=== PATIENT | male | born 1980 | race Caucasian/White ===

== ENCOUNTER 2017-08-12 15:43 | Observation (INO) | payer OTHER ==
[~2017-08-12] VITALS: Ht 172.7 cm; Wt 87.0 kg
[2017-08-12] MEDS ORDERED: XYLOCAINE 1%/SOD BICARB 20 ML VIAL INFIL ONE (16:00)
[2017-08-12] MEDS ORDERED: MoRPHine SULFATE 4 MG/ML 1 ML CARP\\VIAL IV STA ×2 (16:32→17:53)
[2017-08-12] MEDS ORDERED: ONDANSETRON INJ 2 MG/ML 2 ML VIAL IV STA (16:32)
[2017-08-12] MEDS ORDERED: AMPICILLIN/SULBACTAM SOD INJ 3,000 MG in SODIUM CHLORIDE 0.9% 100ML 100 ML IV STA (16:43)
[2017-08-12] MEDS ORDERED: OPTIRAY 320 IV PRN (16:45)
[2017-08-12 17:25] LABS: BASO % 0.2 %; BASO ABS # 0.04 K/uL (0-0.2); EOS % 0.3 %; EOS ABS # 0.06 K/uL (0-0.5); HEMATOCRIT 39.8 % (42-52); HEMOGLOBIN 13.6 g/dL (14.0-18.0); IG# 0.09 K/uL (0.00-0.02); LYMPH % 16.4 %; MEAN CELL VOLUME 92.1 fL (80-100); MEAN CORPUSCULAR HEMOGLOBIN 31.5 pg (25-34); MEAN CORPUSCULAR HGB CONC 34.2 g/dl (32-36); MEAN PLATELET VOLUME 9.4 fL (7.4-10.4); MONO % 6.5 %; MONO ABS # 1.18 K/uL (0.11-0.59); NEUT % 76.1 %; PLATELET COUNT 237 K/uL (130-400); RED CELL DISTRIBUTION WIDTH SD 47.6 fL (36.4-46.3); WHITE BLOOD COUNT 18.27 K/uL (4.8-10.8)
[2017-08-12 17:44] LABS: CALCIUM 8.8 mg/dl (8.5-10.1); CREATININE 0.94 mg/dl (0.60-1.40); POTASSIUM 3.9 mmol/L (3.5-5.1)
--- NOTE | 2017-08-12 18:28 | DIAGNOSTIC IMAGING REPORT ---
CT PELVIS W/IV CONT ONLY (CT) CT DOSE: 249.57 mGy.cm CLINICAL HISTORY: Tailbone cyst TECHNIQUE: The patient was scanned in a dynamic helical fashion during intravenous administration of 116 cc of Optiray 320. A dose lowering technique was utilized adhering to the principles of ALARA. COMPARISON STUDY: None. FINDINGS: There are mildly prominent inguinal lymph nodes, likely reactive. There is no iliac lymphadenopathy. There is no pathologic bowel dilatation. There is colonic diverticulosis. There are no acute peridiverticular inflammatory changes. Within the subcutaneous tissues of the sacral region, there is a elongated cystic lesion extending from the S3 level to the left gluteal fold measuring 14 cm in length, 2.7 cm in maximal transverse diameter, and 2.6 cm in maximal AP diameter. There are no underlying bony abnormalities of the sacrum. One cannot exclude a subtle fistulous tract to the anus. Clinical and physical examination will be necessary to differentiate a perianal abscess from a pilonidal cyst. It should be noted that an MRI study is more sensitive for the detection of a fistulous tract with the anus. IMPRESSION: 14 x 2.7 x 2.6 cm cystic subcutaneous mass, extending from the mid sacral level to the left gluteal fold. Clinical and physical examination will be necessary to differentiate a perianal abscess from a pilonidal cyst Electronically signed by: Corey Soto M.D. 08/12/2017 6:27 PM Dictated Date/Time: 08/12/2017 6:16 PM
[2017-08-12] MEDS ORDERED: HYDROmorphone INJ 0.5 MG/0.5 ML SYR IV STA (19:42)
--- NOTE | 2017-08-12 20:53 | EMERGENCY ROOM VISIT NOTE ---
History First contact with patient: 15:54 Chief Complaint: WOUND INFECTION Stated Complaint: CYST ON TAILBONE-PHYSICIAN REFERRED Nursing Triage Summary: Patient ambulatory to triage with a steady and upright gait, states "I have a history of pilonidal cysts. I saw my PCP for one today. They sent me here to have it drained." History of Present Illness The patient is a 37 year old male who presents to the Emergency Room with complaints of a recurrent pilonidal abscess. The patient reports that he has had this multiple times in the past. He was seen today by his PCP who referred him here. The patient reports that he has had chronic scar tissue in that area. It started to worsen over the past week. He denies fevers or chills, and rates his discomfort a 4 out of 10. Review of Systems 10 system review was performed and was negative except for pertinent positives and negatives as indicated in history of present illness Past Medical/Surgical History Medical Problems: (1) Pilonidal disease Surgical Problems: (1) No history of previous surgery Family History Unremarkable Social History Smoking Status: Current Every Day Smoker Alcohol Use: occasionally Marital Status: Occupation Status: employed Current/Historical Medications No Active Prescriptions or Reported Meds Physical Exam Vital Signs Date Time Temp Pulse Resp B/P (MAP) Pulse Ox O2 Delivery O2 Flow Rate FiO2 08/12/17 18:44 92 18 141/91 98 Room Air 08/12/17 15:49 36.9 114 18 122/79 99 Room Air Physical Exam CONSTITUTIONAL: Healthy and well nourished. Alert and oriented X 3 with positive affect. HEENT: Normocephalic, atraumatic. Pupils equal, round and reactive. NECK: Full active range of motion without discomfort. RESPIRATORY: Clear to auscultation bilaterally with no wheezing, crackles, rhonchi or stridor. CARDIOVASCULAR: Regular rate and rhythm with no murmurs, rubs or gallops. GASTROINTESTINAL: Bowel sounds present in all quadrants. Abdomen is soft and nontender to palpation. MUSCULOSKELETAL: Full range of motion of all joints without discomfort. INTEGUMENTARY: Examination of the pilonidal region shows significant scar tissue and induration with mild overriding erythema. Induration extends into the left medial gluteal wall. It does not extend to the rectum. No focal fluctuance noted in either the pilonidal region or buttock. There is no perianal tenderness to palpation. NEUROLOGIC: No focal neurologic deficits noted. Medical Decision & Procedures ER Provider Diagnostic Interpretation: CT of the pelvis with IV contrast shows the following: CT PELVIS W/IV CONT ONLY (CT) CT DOSE: 249.57 mGy.cm CLINICAL HISTORY: Tailbone cyst TECHNIQUE: The patient was scanned in a dynamic helical fashion during intravenous administration of 116 cc of Optiray 320. A dose lowering technique was utilized adhering to the principles of ALARA. COMPARISON STUDY: None. FINDINGS: There are mildly prominent inguinal lymph nodes, likely reactive. There is no iliac lymphadenopathy. There is no pathologic bowel dilatation. There is colonic diverticulosis. There are no acute peridiverticular inflammatory changes. Within the subcutaneous tissues of the sacral region, there is a elongated cystic lesion extending from the S3 level to the left gluteal fold measuring 14 cm in length, 2.7 cm in maximal transverse diameter, and 2.6 cm in maximal AP diameter. There are no underlying bony abnormalities of the sacrum. One cannot exclude a subtle fistulous tract to the anus. Clinical and physical examination will be necessary to differentiate a perianal abscess from a pilonidal cyst. It should be noted that an MRI study is more sensitive for the detection of a fistulous tract with the anus. IMPRESSION: 14 x 2.7 x 2.6 cm cystic subcutaneous mass, extending from the mid sacral level to the left gluteal fold. Clinical and physical examination will be necessary to differentiate a perianal abscess from a pilonidal cyst Laboratory Results 08/12/17 16:55 Red Blood Count 4.32, Mean Corpuscular Volume 92.1, Mean Corpuscular Hemoglobin 31.5, Mean Corpuscular Hemoglobin Concent 34.2, Mean Platelet Volume 9.4, Neutrophils (%) (Auto) 76.1, Lymphocytes (%) (Auto) 16.4, Monocytes (%) (Auto) 6.5, Eosinophils (%) (Auto) 0.3, Basophils (%) (Auto) 0.2, Neutrophils # (Auto) 13.90, Lymphocytes # (Auto) 3.00, Monocytes # (Auto) 1.18, Eosinophils # (Auto) 0.06, Basophils # (Auto) 0.04 08/12/17 16:55 Test 08/12/17 16:55 08/12/17 17:10 White Blood Count 18.27 K/uL (4.8-10.8) Red Blood Count 4.32 M/uL (4.7-6.1) Hemoglobin 13.6 g/dL (14.0-18.0) Hematocrit 39.8 % (42-52) Mean Corpuscular Volume 92.1 fL (80-100) Mean Corpuscular Hemoglobin 31.5 pg (25-34) Mean Corpuscular Hemoglobin Concent 34.2 g/dl (32-36) Platelet Count 237 K/uL (130-400) Mean Platelet Volume 9.4 fL (7.4-10.4) Neutrophils (%) (Auto) 76.1 % Lymphocytes (%) (Auto) 16.4 % Monocytes (%) (Auto) 6.5 % Eosinophils (%) (Auto) 0.3 % Basophils (%) (Auto) 0.2 % Neutrophils # (Auto) 13.90 K/uL (1.4-6.5) Lymphocytes # (Auto) 3.00 K/uL (1.2-3.4) Monocytes # (Auto) 1.18 K/uL (0.11-0.59) Eosinophils # (Auto) 0.06 K/uL (0-0.5) Basophils # (Auto) 0.04 K/uL (0-0.2) RDW Standard Deviation 47.6 fL (36.4-46.3) RDW Coefficient of Variation 14.0 % (11.5-14.5) Immature Granulocyte % (Auto) 0.5 % Immature Granulocyte # (Auto) 0.09 K/uL (0.00-0.02) Erythrocyte Sedimentation Rate 50 mm/hr (0-14) Anion Gap 6.0 mmol/L (3-11) Est Creatinine Clear Calc Drug Dose 113.2 ml/min Estimated GFR () 117.9 Estimated GFR (Non- 101.7 BUN/Creatinine Ratio 18.9 (10-20) Calcium Level 8.8 mg/dl (8.5-10.1) C-Reactive Protein 10.50 mg/dl (0-0.29) Bedside Lactic Acid Venous 0.44 mmol/L (0.90-1.70) The above labs were reviewed. The patient has a marked leukocytosis with a white count of over 18,000 with left shift and bandemia. Sedimentation rate and CRP elevated. Lactate is normal. Blood cultures 2 are pending. Medications Administered Medications (Trade) Dose Ordered Sig/Dedrick Route Start Time Stop Time Status Last Admin Dose Admin Morphine Sulfate (MoRPHine SULFATE INJ) 4 mg NOW STAT IV 08/12/17 16:32 08/12/17 16:37 DC 08/12/17 17:11 4 MG Ondansetron HCl (Zofran Inj) 4 mg NOW STAT IV 08/12/17 16:32 08/12/17 16:37 DC 08/12/17 17:11 4 MG Ampicillin Sodium/ Sulbactam Sodium 3000 mg/Sodium Chloride 108 ml @ 200 mls/hr NOW STAT IV 08/12/17 16:43 08/12/17 17:15 DC 08/12/17 17:22 200 MLS/HR Morphine Sulfate (MoRPHine SULFATE INJ) 4 mg NOW STAT IV 08/12/17 17:53 08/12/17 17:54 DC 08/12/17 18:01 4 MG Hydromorphone HCl (Dilaudid Inj) 0.5 mg NOW STAT IV 08/12/17 19:42 08/12/17 19:45 DC 08/12/17 19:52 0.5 MG Procedure I&D procedure was performed under local anesthesia after receiving verbal consent from the patient. The area was painted with iodine and allowed to dry. Sterile field was created. Using buffered 1% lidocaine without a, good local anesthesia was administered. Using a #11 scalpel, a 1.5 cm incision was made without any purulent drainage. I tried to access additional areas with needle drivers without any further purulent production. At this point, I noticed that the patient had purulent drainage from the medial wall of the left buttock. No obvious palpable fluctuance was noted at this area. At this point, the procedure was terminated in order to perform CT studies. ED Course Patient history and physical exam were performed. Nurse's notes were reviewed. Vital signs were reviewed and were normal. I&D procedure was attempted with an incision made over the pilonidal region. I was unable to find any purulent drainage. While doing so, I then noticed purulent drainage from the medial wall of the left buttock, a couple inches above the level of the anus. At this point, the procedure was terminated, and a CT scan was recommended. IV access was established, and labs were drawn. The patient was administered IV morphine and Zofran for pain. He was also administered Unasyn 3 g IV infusion. Review of labs shows a markedly leukocytosis with left shift and bandemia. Remaining labs are otherwise normal. CT of the pelvis with IV contrast shows a large cystic structure from the sacral region to the left buttock. Fistula disease cannot be ruled out. The case was further discussed with Dr. Levine, ED attending physician, who suggested surgical consultation. The case was further discussed with Rajni Ansari PA-C, working with Dr. Espinosa, general surgeon on-call. The patient will be admitted with intentions of surgical intervention tomorrow. The patient was administered additional doses of IV morphine and Dilaudid while under my care. The patient rated his discomfort a 2 out of 10 at the time of transfer of care to the surgical service. Medical Decision [place] Drug Monitoring Program Search Results: patient reviewed within database, no issues identified Medication Reconcilliation Current Medication List: was personally reviewed by me Blood Pressure Screening Patient's blood pressure: Normal blood pressure Impression Primary Impression: Pilonidal abscess Additional Impression: Left buttock abscess Departure Information Dispostion Home / Self-Care Prescriptions No Active Prescriptions or Reported Meds Forms HOME CARE DOCUMENTATION FORM, IMPORTANT VISIT INFORMATION Patient Instructions My [facility] [id number] Additional Instructions Complete all Keflex and Bactrim DS antibiotics as prescribed. Return in 2 days for packing removal and wound recheck. Return sooner for any progressively worsening pain, swelling or developing fever. Suggest follow-up with a general surgeon to discuss surgical treatment of your recurrent pilonidal abscess. Problem Qualifiers
--- NOTE | 2017-08-12 20:54 | Surgery Consultation ---
Consultation Date of Consultation: Aug 12, 2017. Attending Physician: Reason for Consultation: Pilonidal Cyst vs. abscess. History of Present Illness Patient is a 37M who presents to the ED tonight due to pain and swelling in his lower back and perirectal area. Patient does have a history of pilonidal cysts. States he has had it lanced 3 times in the past. He was given unasyn in the ED and an attempt was made to dru the area at this time. This attempt was stopped due to the size of the affected area. A CT scan was then performed showing a 14 x 2.7 x 2.6 cm cystic subcutaneous mass, extending from the mid sacral level to the left gluteal fold possibly signifying a perianal abscess vs. pilonidal cyst. Denies fever/chills/recent illness. Denies any other symptoms at this time. Patient states he has been dealing with this for years but it has not been this bad. Denies history of crohn's disease. He last ate at 11AM, but had a coke in the ED at 8pm. Past Medical/Surgical History Medical Problems: (1) Pilonidal abscess Status: Acute Social History Smoking Status: Current Every Day Smoker Allergies Coded Allergies: No Known Allergies (Unverified , 08/12/17) Home Medications No Active Prescriptions or Reported Meds Current Inpatient Medications Current Inpatient Medications Medications (Trade) Dose Ordered Sig/Dedrick Route Start Time Stop Time Status Last Admin Dose Admin Ioversol (Optiray 320) 111 ml UD PRN IV 08/12/17 16:45 08/16/17 16:44 Review of Systems Constitutional: No fever, No chills Respiratory: No shortness of breath Cardiovascular: No chest pain Abdomen: No pain, No nausea, No vomiting, No diarrhea, No constipation Genitourinary - Male: No dysuria Integumentary: + color change (swelling and pain in sacral and perianal area.) , + problem reported Physical Exam Date Time Temp Pulse Resp B/P (MAP) Pulse Ox O2 Delivery O2 Flow Rate FiO2 08/12/17 18:44 92 18 141/91 98 Room Air 08/12/17 15:49 36.9 114 18 122/79 99 Room Air General Appearance: WD/WN, no apparent distress Head: normocephalic, atraumatic ENT: hearing grossly normal Respiratory/Chest: lungs clear, normal breath sounds, no respiratory distress, no accessory muscle use Cardiovascular: regular rate, rhythm, no gallop, no murmur Abdomen/GI: non tender, soft Neurologic/Psych: alert, normal reflexes, oriented x 3 Skin: + pertinent finding (Redness, TTP and induration in perianal and sacral areas.) Laboratory Results Last 24 Hours Test 08/12/17 16:55 08/12/17 17:10 White Blood Count 18.27 K/uL Red Blood Count 4.32 M/uL Hemoglobin 13.6 g/dL Hematocrit 39.8 % Mean Corpuscular Volume 92.1 fL Mean Corpuscular Hemoglobin 31.5 pg Mean Corpuscular Hemoglobin Concent 34.2 g/dl Platelet Count 237 K/uL Mean Platelet Volume 9.4 fL Neutrophils (%) (Auto) 76.1 % Lymphocytes (%) (Auto) 16.4 % Monocytes (%) (Auto) 6.5 % Eosinophils (%) (Auto) 0.3 % Basophils (%) (Auto) 0.2 % Neutrophils # (Auto) 13.90 K/uL Lymphocytes # (Auto) 3.00 K/uL Monocytes # (Auto) 1.18 K/uL Eosinophils # (Auto) 0.06 K/uL Basophils # (Auto) 0.04 K/uL RDW Standard Deviation 47.6 fL RDW Coefficient of Variation 14.0 % Immature Granulocyte % (Auto) 0.5 % Immature Granulocyte # (Auto) 0.09 K/uL Erythrocyte Sedimentation Rate 50 mm/hr Sodium Level 135 mmol/L Potassium Level 3.9 mmol/L Chloride Level 103 mmol/L Carbon Dioxide Level 26 mmol/L Anion Gap 6.0 mmol/L Blood Urea Nitrogen 18 mg/dl Creatinine 0.94 mg/dl Est Creatinine Clear Calc Drug Dose 113.2 ml/min Estimated GFR () 117.9 Estimated GFR (Non- 101.7 BUN/Creatinine Ratio 18.9 Random Glucose 96 mg/dl Calcium Level 8.8 mg/dl C-Reactive Protein 10.50 mg/dl Bedside Lactic Acid Venous 0.44 mmol/L Assessment & Plan Perianal abscess vs. pilonidal cyst Given size of this collection, will elect for I&D in the OR tonight with Dr. Espinosa at 10pm NPO, IV fluids, IV pain medication PRN, IV Zofran PRN for nausea, SCDs Risks, benefits and alternatives to the procedure were discussed - all questions were answered. OR Notified. Dr. Espinosa was in to see and examine the patient. Please contact with questions or concerns.
[2017-08-12 21:22] VITALS: O2SAT 96
[2017-08-12] MEDS ORDERED: ATROPINE SULFATE 0.1 MG/ML 5ML SYR IV PRN (21:30)
[2017-08-12] MEDS ORDERED: ONDANSETRON INJ 2 MG/ML 2 ML VIAL IV PRN ×2 (21:30→23:00)
[2017-08-12] MEDS ORDERED: EpHEDrine SULFATE INJ 50 MG/ML AMP IV PRN (21:30)
[2017-08-12] MEDS ORDERED: HYDROmorphone INJ 1 MG/ML SYR IV PRN ×2 (21:30→23:00)
[2017-08-12] MEDS ORDERED: FENTANYL CITRATE INJ 50 MCG/1 ML 2 ML VIAL IV PRN (21:30)
[2017-08-12] MEDS ORDERED: SUCCINYLCHOLINE CHLORIDE 20 MG/ML 10 ML VIAL IV ONE (21:35)
[2017-08-12] MEDS ORDERED: DEXAMETHASONE SOD INJ 4 MG/ML VIAL ONE (21:35)
[2017-08-12] MEDS ORDERED: ONDANSETRON INJ 2 MG/ML 2 ML VIAL ONE (21:35)
[2017-08-12] MEDS ORDERED: PROPOFOL IV EMULSION 10 MG/ML 20 ML VIAL IV ONE (21:35)
[2017-08-12] MEDS ORDERED: MIDAZOLAM HCL 1 MG/ML 2ML VIAL ONE (21:37)
[2017-08-12] MEDS ORDERED: FENTANYL CITRATE INJ 50 MCG/1 ML 2 ML VIAL ONE ×3 (21:37→22:34)
[2017-08-12] MEDS ORDERED: BUPIVACAINE 0.5 % 5 MG/1 ML MPF 30ML VIAL ONE (22:10)
[2017-08-12] MEDS ORDERED: BUPIVACAINE LIPOSOME 1/3% 266 MG/20 ML VIAL INFIL ONE (22:10)
[2017-08-12] MEDS ORDERED: CLINDAMYCIN PHOS 150 MG/ML 2 ML VIAL ONE (22:41)
--- NOTE | 2017-08-12 22:48 | [facility] Post Operative Brief Note ---
Immediate Operative Summary Operative Date Aug 12, 2017. Pre-Operative Diagnosis Pilonidal Abscess Post-Operative Diagnosis Pilonidal Abscess Procedure(s) Performed anorectal exam under anesthesia, anoscopy. incision and drainage of pilonidal abscess Surgeon Dr. Espinosa Food Safety Scientist Surgeon(s) Fco Power PA-C Estimated Blood Loss 5 Findings Consistent with Post-Op Diagnosis Specimens A. Pilonidal Abscess For Culture: 1. Pilonidal Abscess - routine - C+S, aerobic/anaerobic, gram stain Drains trent Anesthesia Type General Complication(s) none
--- NOTE | 2017-08-12 22:58 | [facility] Operative Report ---
Operative Report Operative Date Aug 12, 2017. Pre-Operative Diagnosis Pilonidal Abscess Post-Operative Diagnosis pilonidal abscess Procedure(s) Performed Anorectal exam under anesthesia, anoscopy. Incision and drainage of pilonidal abscess with counter incision. Surgeon Dr. Espinosa Telehealth Nurse Surgeon(s) Fco Power PA-C Estimated Blood Loss 5 Findings Anorectal exam under anesthesia performed with anoscopy, no evidence of fistula or anal involvement. Culture sent. Incision and drainage of left buttock pilonidal abscess. Cavity communicated with fluid collection underlying midline cleft where a counterincision was performed. A Trent drain was placed and secured in place. Wound packed. Specimens A. Pilonidal Abscess For Culture: 1. Pilonidal Abscess - routine - C+S, aerobic/anaerobic, gram stain Drains trent Complication(s) None Disposition Recovery Room / PACU Indications 37-year-old male with history of pilonidal disease presented to the emergency department several day history of worsening pain and swelling to his buttock. CT scan was performed that showed a large fluid collection with 2 discrete areas consistent with a pilonidal versus perianal abscess. Plan for an rectal exam under anesthesia, incision and drainage of buttock/sacral abscess. The risks of the procedure were discussed, all questions were answered, and the patient agreed to proceed with surgery as planned. Description of Procedure The patient was properly identified, consented, and taken to the operating room where he was placed in the supine position. General endotracheal anesthesia was induced and he was placed in the prone jackknife position. SCDs and a safety belt were placed. The patient's anus and buttocks were prepped and draped in the standard sterile fashion. Surgical timeout was performed and all parties were in agreement that this was the correct patient and procedure to be performed and we continued as planned. The external anal exam revealed a draining abscess to the left and superior to his anus. Digital rectal exam revealed no significant abnormality. An anoscope was inserted and the exam revealed no evidence of the fistula and no abnormalities. Attention then turned to the left buttock abscess. An elliptical incision was made and deepened down through subcutaneous tissue until the abscess was opened. Cultures were sent. The wound was probed and communication was discovered that extended up to the gluteal cleft and was consistent with the CT findings. An elliptical counterincision was then made in the midline gluteal cleft overlying the pilonidal abscess. A Bradford was then passed between the 2 incisions and secured into place with silk suture. Hemostasis was achieved and the wound was irrigated. Local anesthetic in the form of 0.5% Marcaine mixed with Exparel was injected in the incision. The wound was packed with gauze. The gluteal cleft was shaved. Dressings were applied. Anesthesia was ceased, the patient was transferred to the PACU for recovery in stable condition. All sponge, instrument, needle counts were correct at the conclusion of the procedure. The patient tolerated the procedure well. The physician's bilingual sales assistant was present and scrubbed for the entirety of the case. He was essential in positioning, prepping and draping, retraction and exposure, and placing dressings at the conclusion of the case. I attest to the content of the Intraoperative Record and any orders documented therein. Any exceptions are noted below.
[2017-08-12] MEDS ORDERED: ACETAMINOPHEN 325 MG TAB PO PRN (23:00)
[2017-08-12] MEDS ORDERED: OXYCODONE/ACETAMINOPHEN 5-325 TAB PO PRN ×2 (23:00)
[2017-08-13] VITALS (7 sets, daily range): BP systolic 103–142; BP diastolic 67–81; PULSE 79–93; TEMP 36.7–36.9; O2SAT 95–97; Ht 172.7 cm; Wt 87.0 kg
[2017-08-13] MEDS ORDERED: IV FLUIDS COMPLETED PRN (00:30)
[2017-08-13] MEDS: SODIUM CHLORIDE 0.9% 1000ML 1,000 ML IV SCH ×2 (01:00→11:00)
[2017-08-13] MEDS: HYDROmorphone INJ 0.5 MG/0.5 ML SYR IV PRN ×3 (01:05→10:59)
--- NOTE | 2017-08-13 01:53 | Anesthesiology Progress Note ---
Anesthesia Post Op Note Date & Time Aug 13, 2017 at 01:52 Vital Signs Pain Intensity: 7.0 Vital Signs Past 12 Hours Date Time Temp Pulse Resp B/P (MAP) Pulse Ox O2 Delivery O2 Flow Rate FiO2 08/13/17 01:25 36.7 93 16 142/81 (101) 95 Room Air 08/13/17 01:03 Room Air 08/13/17 00:55 36.8 84 18 109/73 (85) 97 Room Air 08/13/17 00:25 36.7 16 125/79 (94) 96 Room Air 08/13/17 00:05 36.5 87 18 125/104 100 Oxymask 2 08/13/17 00:00 36.3 92 18 118/94 95 Oxymask 4 08/12/17 23:41 36.2 92 18 118/94 95 Oxymask 4 08/12/17 23:35 36.2 95 18 114/84 95 Oxymask 4 08/12/17 23:30 36 90 18 108/87 96 Oxymask 4 08/12/17 23:26 105 18 127/83 96 Oxymask 4 08/12/17 23:21 35.9 108 18 146/96 100 Oxymask 4 08/12/17 23:16 35.9 111 18 146/109 96 Oxymask 4 08/12/17 23:13 35.9 117 18 152/94 99 Oxymask 10 08/12/17 21:22 92 16 132/84 96 Room Air 08/12/17 18:44 92 18 141/91 98 Room Air 08/12/17 15:49 36.9 114 18 122/79 99 Room Air Notes Mental Status: alert / awake / arousable, participated in evaluation Pt Amnestic to Procedure: Yes Nausea / Vomiting: adequately controlled Pain: adequately controlled Airway Patency, RR, SpO2: stable & adequate BP & HR: stable & adequate Hydration State: stable & adequate Anesthetic Complications: no major complications apparent
[2017-08-13 05:51] LABS: BASO % 0.1 %; BASO ABS # 0.01 K/uL (0-0.2); HEMATOCRIT 38.1 % (42-52); HEMOGLOBIN 12.8 g/dL (14.0-18.0); IG# 0.06 K/uL (0.00-0.02); LYMPH % 5.3 %; MEAN CELL VOLUME 92.7 fL (80-100); MEAN CORPUSCULAR HEMOGLOBIN 31.1 pg (25-34); MEAN CORPUSCULAR HGB CONC 33.6 g/dl (32-36); MEAN PLATELET VOLUME 9.4 fL (7.4-10.4); MONO % 2.1 %; MONO ABS # 0.35 K/uL (0.11-0.59); NEUT % 92.1 %; NEUT ABS # 15.51 K/uL (1.4-6.5); PLATELET COUNT 223 K/uL (130-400); RED CELL DISTRIBUTION WIDTH CV 13.9 % (11.5-14.5); RED CELL DISTRIBUTION WIDTH SD 47.2 fL (36.4-46.3); WHITE BLOOD COUNT 16.83 K/uL (4.8-10.8)
--- NOTE | 2017-08-13 06:54 | Surgery Progress Note ---
Surgery Progress Note Date of Service Aug 13, 2017. Subjective Post OP Day: 1 + feeling well, + complaints, + pain controlled, + diet (Tolerating regular diet.), No bowel movement, No nausea, No vomiting incisions sites appear open and draining into packing and dressings as expected. Objective Vital Signs: Date Time Temp Pulse Resp B/P (MAP) Pulse Ox O2 Delivery O2 Flow Rate FiO2 08/13/17 03:25 36.8 92 18 118/74 (89) 97 Room Air 08/13/17 02:25 36.9 90 16 114/73 (87) 95 Room Air 08/13/17 01:25 36.7 93 16 142/81 (101) 95 Room Air 08/13/17 01:03 Room Air 08/13/17 00:55 36.8 84 18 109/73 (85) 97 Room Air 08/13/17 00:25 Room Air 08/13/17 00:25 36.7 16 125/79 (94) 96 Room Air 08/13/17 00:05 36.5 87 18 125/104 100 Oxymask 2 08/13/17 00:00 36.3 92 18 118/94 95 Oxymask 4 08/12/17 23:41 36.2 92 18 118/94 95 Oxymask 4 08/12/17 23:35 36.2 95 18 114/84 95 Oxymask 4 08/12/17 23:30 36 90 18 108/87 96 Oxymask 4 08/12/17 23:26 105 18 127/83 96 Oxymask 4 08/12/17 23:21 35.9 108 18 146/96 100 Oxymask 4 08/12/17 23:16 35.9 111 18 146/109 96 Oxymask 4 08/12/17 23:13 35.9 117 18 152/94 99 Oxymask 10 08/12/17 21:22 92 16 132/84 96 Room Air 08/12/17 18:44 92 18 141/91 98 Room Air 08/12/17 15:49 36.9 114 18 122/79 99 Room Air General Appearance: WD/WN, no apparent distress Head: normocephalic, atraumatic Neck: trachea midline Respiratory/Chest: no respiratory distress, no accessory muscle use Abdomen: non tender Incision(s): drainage (some drainage from abscess site soaked in bandage. ) Laboratory Results: Results Past 24 Hours Test 08/12/17 16:55 08/12/17 17:10 08/13/17 05:21 Range/Units White Blood Count 18.27 16.83 4.8-10.8 K/uL Red Blood Count 4.32 4.11 4.7-6.1 M/uL Hemoglobin 13.6 12.8 14.0-18.0 g/dL Hematocrit 39.8 38.1 42-52 % Mean Corpuscular Volume 92.1 92.7 80-100 fL Mean Corpuscular Hemoglobin 31.5 31.1 25-34 pg Mean Corpuscular Hemoglobin Concent 34.2 33.6 32-36 g/dl Platelet Count 237 223 130-400 K/uL Mean Platelet Volume 9.4 9.4 7.4-10.4 fL Neutrophils (%) (Auto) 76.1 92.1 % Lymphocytes (%) (Auto) 16.4 5.3 % Monocytes (%) (Auto) 6.5 2.1 % Eosinophils (%) (Auto) 0.3 0.0 % Basophils (%) (Auto) 0.2 0.1 % Neutrophils # (Auto) 13.90 15.51 1.4-6.5 K/uL Lymphocytes # (Auto) 3.00 0.90 1.2-3.4 K/uL Monocytes # (Auto) 1.18 0.35 0.11-0.59 K/uL Eosinophils # (Auto) 0.06 0.00 0-0.5 K/uL Basophils # (Auto) 0.04 0.01 0-0.2 K/uL RDW Standard Deviation 47.6 47.2 36.4-46.3 fL RDW Coefficient of Variation 14.0 13.9 11.5-14.5 % Immature Granulocyte % (Auto) 0.5 0.4 % Immature Granulocyte # (Auto) 0.09 0.06 0.00-0.02 K/uL Erythrocyte Sedimentation Rate 50 0-14 mm/hr Sodium Level 135 136-145 mmol/L Potassium Level 3.9 3.5-5.1 mmol/L Chloride Level 103 98-107 mmol/L Carbon Dioxide Level 26 21-32 mmol/L Anion Gap 6.0 3-11 mmol/L Blood Urea Nitrogen 18 7-18 mg/dl Creatinine 0.94 0.60-1.40 mg/dl Est Creatinine Clear Calc Drug Dose 113.2 ml/min Estimated GFR () 117.9 Estimated GFR (Non- 101.7 BUN/Creatinine Ratio 18.9 10-20 Random Glucose 96 70-99 mg/dl Calcium Level 8.8 8.5-10.1 mg/dl C-Reactive Protein 10.50 0-0.29 mg/dl Bedside Lactic Acid Venous 0.44 0.90-1.70 mmol/L Microbiology Results 08/12/17 Blood Culture, Received Pending 08/12/17 Blood Culture, Received Pending 08/12/17 Gram Stain, Received Pending 08/12/17 Bacterial Culture, Received Pending Assessment & Plan POD # 1 s/p I&D of pilonidal abscess with counter incision Doing well, Pain controlled. Tolerating Regular diet, No N/V. WBC down to 16.83, Continue IV Cleocin. Leave [place] drain for now, Continue packing and dressing change QS. Will discuss findings with Dr. Espinosa. Please contact with questions or concerns.
[2017-08-13] MEDS ORDERED: CLINDAMYCIN IV 600 MG in DEXTROSE 5% 50ML 50 ML IV SCH (08:00)
[2017-08-13] MEDS ORDERED: OXYC-57 PO (10:17)
[2017-08-13] MEDS ORDERED: CLIN300C2 PO (10:17)
--- NOTE | 2017-08-13 10:25 | Discharge Instructions ---
Discharge Instructions Date of Service Aug 13, 2017. Admission Reason for Admission: Pilonidal Abscess Discharge Discharge Diagnosis / Problem: Pilonidal Abscess Discharge Goals Goal(s): Decrease discomfort, Improve function Activity Recommendations Activity Limitations: as noted below Lifting Limitations: no more than 10 pounds Exercise/Sports Limitations: until after follow-up appointment May Resume Sexual Activity: after follow-up appointment Shower/Bathe: tomorrow Driving or Machine Use: resume 1 day after discharge . Instructions / Follow-Up Instructions / Follow-Up Please change your dressing twice daily. Please call the [facility] at [phone] tomorrow to set up an appointment to have your drain removed this coming 08/15/2017. At your drain removal appointment please schedule an appointment to follow-up with Dr. Espinosa for wound check next week. Please call the office with any questions or concerns. Current Hospital Diet Patient's current hospital diet: Regular Diet Discharge Diet Recommended Diet: Regular Diet Procedures Procedures Performed: Incision and Drainage of Pilodinal Cyst Pending Studies Studies pending at discharge: no Medical Emergencies . Who to Call and When: Medical Emergencies: If at any time you feel your situation is an emergency, please call 911 immediately. . Non-Emergent Contact Non-Emergency issues call your: Primary Care Provider, Surgeon Call Non-Emergent contact if: temperature is above 101.5, your pain is not controlled, wound has increased drainage, wound has increased redness . "Provider Documentation" section prepared by Rajni Ansari. . VTE Core Measure Inpt VTE Proph given/why not?: SCD's [place] Drug Monitoring Program Search Results: patient reviewed within database, no issues identified
[2017-08-13] MEDS ORDERED: CLINDAMYCIN HCL 150 MG CAP PO SCH (12:00)
== END 2017-08-13 12:27 | disposition home or self-care (01) ==
LOC: C.EDB 15:45 → C.MSN 23:06 → INTOOBSV 23:06 → C.MSW 23:06 → ENRESERV 23:37
PROVIDERS: ADMIT Surgery; ATTEND Surgery
DX: L05.01 Pilonidal cyst with abscess (principal); L02.31 Cutaneous abscess of buttock; F17.200 Nicotine dependence, unspecified, uncomplicated